=== PATIENT | female | born 1930 | race Caucasian/White ===

== ENCOUNTER → 2016-10-31 | Outpatient (CLI) | payer MEDICARE ==
--- NOTE | 2016-10-31 15:42 | BD ---
EXAMINATION TYPE: MG DEXA axial skeleton. DATE OF EXAM: 10/31/2016 Height: 62.25 Weight: 155 FRAX RISK QUESTIONS: Alcohol (3 or more units per day): No Family History (Parent hip fracture): unsure Glucocorticoids (More than 3mos): no (Ex: prednisone, prednisolone, methylprednisolone, dexamethasone, and hydrocortisone). History of Fracture in Adulthood: yes, humerus...lower leg... after age 49 Secondary Osteoporosis: 1. Type 1 Diabetes: no 2. Hyperthyroidism: no 3. Menopause before 45: no 4. Malnutrition: no 5. Chronic liver disease: no Rheumatoid Arthritis: no Current Tobacco Use: no RISK FACTORS HISTORY OF: Family History of Osteoporosis: patient believes daughter may have osteoporosis Active: yes Diet low in dairy products/other sources of calcium: somewhat Postmenopausal woman: yes Take estrogen and/or progesterone medications: no Lost more than 2 inches in height since high school: perhaps, states may have been about 65 inches at one time Frequent falls: no Poor Health: no Hyperparathyroidism: no Adrenal Insufficiency: no MEDICATIONS: Prednisone or other steroids: no Thyroid Medications: no Osteoporosis Medications: not now Which medication: Fosamax, then Actonel How Long: very briefly Additional Medications: blood pressure meds & a med for gout EXAM MEASUREMENTS: Bone mineral densitometry was performed using the Unight System. Bone mineral density as measured about the Lumbar spine is: ----- L1-L4(G/cm2): 0.925 T Score Values are as follows: ----- L2: -2.7 ----- L3: -1.9 ----- L4: -1.3 ----- L1-L4: -2.1 Bone mineral density has: Increased 1.6% since study of: 05/02/2011 Bone mineral density about the R hip (g/cm2): 0.844 Bone mineral density about the L hip (g/cm2): 0.845 T Score values are as follows: -----R Neck: -1.4 -----L Neck: -1.4 -----R Total: -0.4 -----L Total: -0.8 Bone mineral density has: Increased 0.2% since study of: 05/02/2011 IMPRESSION: Findings compatible with osteopenia about the lumbar spine and as such there is increased fracture ri sk. NOTE: T-SCORE=SD OF THE YOUNG ADULT MEAN.
--- NOTE | 2016-11-07 11:48 | MM ---
Reason for exam: screening (asymptomatic). Last mammogram was performed 5 years and 6 months ago. History: Patient is postmenopausal. Family history of breast cancer in mother and breast cancer in daughter at age 50. Physical Findings: A clinical breast exam by your physician is recommended on an annual basis and results should be correlated with mammographic findings. MG 3D Screening Mammo W/Cad Bilateral CC and MLO view(s) were taken. Prior study comparison: April 01, 2013, mammogram, performed at [facility]. May 04, 2011, [facility] DIGITAL BILATERAL MAMMOGRAM w/CAD. May 02, 2011, bilateral digital screening mammo w/CAD. The breast tissue is heterogeneously dense. This may lower the sensitivity of mammography. There is chronic nodularity in the left breast. No significant changes when compared with prior studies. ASSESSMENT: Benign, BI-RAD 2 RECOMMENDATION: Routine screening mammogram of both breasts in 1 year.
== END | disposition home or self-care (01) ==
LOC: RADMAMWWP 11:53
PROVIDERS: ATTEND Internal Medicine Geriatric Medicine
DX: Z12.31 Encounter for screening mammogram for malignant neoplasm of breast (principal); M81.0 Age-related osteoporosis without current pathological fracture
CPT/HCPCS: 77080; 77063; G0202

== ENCOUNTER 2017-08-05 11:06 | Emergency (ER) | payer MEDICARE ==
[2017-08-05 11:33] VITALS: RESP 18
--- NOTE | 2017-08-05 12:49 | ED ---
Extremity Problem HPI - General Chief complaint: Extremity Problem,Nontraumatic Stated complaint: Swollen Right Leg Time Seen by Provider: 08/05/17 11:43 Source: patient, RN notes reviewed, old records reviewed Mode of arrival: wheelchair Limitations: no limitations - History of Present Illness Initial comments: A 86-year-old female presents emergency Department chief complaint of right lower extremity swelling. Patient states that she's had these symptoms for the past week. She ports pain when she is ambulating. Patient states that she has had no trauma to the leg. Denies any itching. No fevers or chills. She does have a history of gout. - Related Data Home Medications Medication Instructions Recorded Confirmed Allopurinol [Zyloprim] 300 mg PO DAILY 09/03/13 09/04/13 Dicyclomine [Bentyl] 20 mg PO TID 09/03/13 09/04/13 Hydrochlorothiazide [Hydrodiuril] 25 mg PO DAILY 09/03/13 09/04/13 Losartan Potassium [Cozaar] 50 mg PO DAILY 09/03/13 09/04/13 Simvastatin [Zocor] 40 mg PO HS 09/03/13 09/04/13 Previous Rx's Medication Instructions Recorded Acetaminophen-Codeine 300-30mg 1 tab PO Q4H PRN 3 Days #12 tablet 08/05/17 [Tylenol w/codeine #3] Allergies Allergy/AdvReac Type Severity Reaction Status Date / Time morphine AdvReac Nausea & Verified 08/05/17 11:33 Vomiting Penicillins AdvReac PAIN AT Verified 08/05/17 11:33 INJECTIONS SITE Review of Systems ROS Statement: Those systems with pertinent positive or pertinent negative responses have been documented in the HPI. ROS Other: All systems not noted in ROS Statement are negative. Past Medical History Past Medical History: Hyperlipidemia, Hypertension Additional Past Medical History / Comment(s): gout History of Any Multi-Drug Resistant Organisms: None Reported Past Surgical History: Cholecystectomy, Hernia Repair, Hysterectomy Past Psychological History: No Psychological Hx Reported Smoking Status: Never smoker Past Alcohol Use History: None Reported Past Drug Use History: None Reported General Exam - General Exam Comments Initial Comments: Pleasant 86-year-old female. Alert and oriented. No acute distress. Limitations: no limitations General appearance: alert, in no apparent distress Head exam: Present: atraumatic, normocephalic, normal inspection Eye exam: Present: normal appearance, PERRL, EOMI. Absent: scleral icterus, conjunctival injection, periorbital swelling ENT exam: Present: normal exam, mucous membranes moist Neck exam: Present: normal inspection. Absent: tenderness, meningismus, lymphadenopathy Respiratory exam: Present: normal lung sounds bilaterally. Absent: respiratory distress, wheezes, rales, rhonchi, stridor Cardiovascular Exam: Present: regular rate, normal rhythm, normal heart sounds. Absent: systolic murmur, diastolic murmur, rubs, gallop, clicks GI/Abdominal exam: Present: soft, normal bowel sounds. Absent: distended, tenderness, guarding, rebound, rigid Extremities exam: Present: normal inspection, full ROM, normal capillary refill. Absent: tenderness, pedal edema, joint swelling, calf tenderness Right Upper Leg exam: Present: normal inspection, full ROM Knee exam: Present: normal inspection, full ROM Lower Leg exam: Present: normal inspection, swelling. Absent: full ROM Ankle exam: Present: full ROM, swelling. Absent: normal inspection Foot/Toe exam: Present: normal inspection, full ROM Gait: observed and normal Back exam: Present: normal inspection Neurological exam: Present: alert, oriented X3, CN II-XII intact Psychiatric exam: Present: normal affect, normal mood Skin exam: Present: warm, dry, intact, normal color. Absent: rash Course Vital Signs 08/05/17 08/05/17 08/05/17 11:30 14:36 16:12 Temperature 98.4 F 98.5 F Pulse Rate 70 75 73 Respiratory 18 18 18 Rate Blood Pressure 141/65 161/70 164/86 O2 Sat by Pulse 96 94 L 95 Oximetry Medical Decision Making - Lab Data Result diagrams: 08/05/17 14:24 08/05/17 14:24 Lab Results 08/05/17 08/05/17 08/05/17 Range/Units 14:24 14:24 14:24 WBC 7.2 (3.8-10.6) k/uL RBC 4.43 (3.80-5.40) m/uL Hgb 13.3 (11.4-16.0) gm/dL Hct 39.6 (34.0-46.0) % MCV 89.5 (80.0-100.0) fL MCH 30.1 (25.0-35.0) pg MCHC 33.6 (31.0-37.0) g/dL RDW 14.2 (11.5-15.5) % Plt Count 315 (150-450) k/uL Neutrophils % 64 % Lymphocytes % 24 % Monocytes % 5 % Eosinophils % 5 % Basophils % 1 % Neutrophils # 4.6 (1.3-7.7) k/uL Lymphocytes # 1.7 (1.0-4.8) k/uL Monocytes # 0.3 (0-1.0) k/uL Eosinophils # 0.3 (0-0.7) k/uL Basophils # 0.1 (0-0.2) k/uL Sodium 143 (137-145) mmol/L Potassium 3.6 (3.5-5.1) mmol/L Chloride 104 (98-107) mmol/L Carbon Dioxide 27 (22-30) mmol/L Anion Gap 12 mmol/L BUN 19 H (7-17) mg/dL Creatinine 0.89 (0.52-1.04) mg/dL Est GFR (CKD-EPI)AfAm 67 (>60 ml/min/1.73 sqM) Est GFR (CKD-EPI)NonAf 59 (>60 ml/min/1.73 sqM) Glucose 101 H (74-99) mg/dL Uric Acid 3.9 (3.7-7.4) mg/dL Calcium 9.6 (8.4-10.2) mg/dL Total Bilirubin 0.6 (0.2-1.3) mg/dL AST 33 (14-36) U/L ALT 28 (9-52) U/L Alkaline Phosphatase 97 (38-126) U/L NT-Pro-B Natriuret Pep 123 pg/mL Total Protein 6.7 (6.3-8.2) g/dL Albumin 4.0 (3.5-5.0) g/dL - Radiology Data Radiology results: report reviewed Disposition Clinical Impression: Leg edema Disposition: HOME SELF-CARE Condition: Good Instructions: Leg Edema (ED) Additional Instructions: Patient advised to rest, keep legs elevated and ice them. Patient is a pain medicine as needed for severe pain. Patient can follow up with primary care provider he may need to be on Lasix. Return to the emergency department if any alarming signs or symptoms occur. Prescriptions: Acetaminophen-Codeine 300-30mg [Tylenol w/codeine #3] 1 tab PO Q4H PRN 3 Days # 12 tablet PRN Reason: Pain Is patient prescribed a controlled substance at d/c from ED?: No If prescribed controlled substance>3 days was MAPS reviewed?: No When asked, does pt state using other controlled substances?: No Referrals: Petr Sherman MD [Primary Care Provider] - 1-2 days Time of Disposition: 15:47
--- NOTE | 2017-08-05 13:17 | US ---
EXAMINATION TYPE: US venous doppler duplex LE DATE OF EXAM: 08/05/2017 1:09 PM COMPARISON: NONE CLINICAL HISTORY: 86-year-old female with bilateral lower leg swelling right > left ankle and intermi ttently occurring x 6 months, LE skin redness SIDE PERFORMED: Bilateral TECHNIQUE: The lower extremity deep venous system is examined utilizing real time linear array sonog keron with graded compression, doppler sonography and color-flow sonography. FINDINGS: VESSELS IMAGED: Common Femoral Vein Deep Femoral Vein Greater Saphenous Vein * Femoral Vein Popliteal Vein Small Saphenous Vein * Proximal Calf Veins Posterior tibial veins (* superficial vessels) Right Leg: Negative for DVT Left Leg: Negative for DVT Subcutaneous edema at the bilateral ankles. IMPRESSION: 1. No evidence for DVT within the bilateral lower extremities. 2. Subcutaneous edema at both ankles.
--- NOTE | 2017-08-05 14:28 | XR ---
EXAMINATION TYPE: XR chest 1V portable, XR tibia fibula 2 views RT DATE OF EXAM: 08/05/2017 Comparison: None. Clinical History: 86-year-old female with right lower leg pain and swelling.Pain Findings: Chest: The heart is mildly enlarged. Aorta within normal limits. Diffuse interstitial prominence of the synchronous motor assembler yee appearance. Hazy lower and peripheral lung densities related to overlying soft tissue. No consoli dation or pleural effusion seen. Right tibia/fibula: Osteopenia. Some soft tissue swelling noted at the ankle. No acute fracture seen. Limited positioning on the lateral view for assessment of joint effusion at the knee. Impression: 1. Chest: Mild cardiomegaly and chronic appearing changes, possible bronchitis or chronic asthma. No infiltrate. 2. Right tibia/fibula: No acute osseous abnormality seen. Unable to assess for knee joint effusion du e to positioning on the lateral view. There is soft tissue swelling at the ankle.
[2017-08-05 14:37] LABS: Basophils # (A) 0.1 k/uL (0-0.2); Basophils % (A) 1 %; Eosinophils # (A) 0.3 k/uL (0-0.7); Eosinophils % (A) 5 %; HCT 39.6 % (34.0-46.0); HGB 13.3 gm/dL (11.4-16.0); Lymphocytes # (A) 1.7 k/uL (1.0-4.8); Lymphocytes % (A) 24 %; MCH 30.1 pg (25.0-35.0); MCHC 33.6 g/dL (31.0-37.0); MCV 89.5 fL (80.0-100.0); Mean Platelet Volume 6.4; Monocytes # (A) 0.3 k/uL (0-1.0); Monocytes % (A) 5 %; Neutrophils # (A) 4.6 k/uL (1.3-7.7); Neutrophils % (A) 64 %; Platelet Count 315 k/uL (150-450); RBC 4.43 m/uL (3.80-5.40); RDW 14.2 % (11.5-15.5); WBC 7.2 k/uL (3.8-10.6)
[2017-08-05 14:49] LABS: Calcium 9.6 mg/dL (8.4-10.2); Potassium 3.6 mmol/L (3.5-5.1); Total Bilirubin 0.6 mg/dL (0.2-1.3); Total Protein 6.7 g/dL (6.3-8.2); Uric Acid 3.9 mg/dL (3.7-7.4)
[2017-08-05 16:14] VITALS: BP 164/86; PULSE 73; TEMP 98.5
== END 2017-08-05 16:13 | disposition home or self-care (01) ==
LOC: EC 11:06
DX: R60.0 Localized edema (principal); M79.604 Pain in right leg; E78.5 Hyperlipidemia, unspecified; I10 Essential (primary) hypertension; M10.9 Gout, unspecified; Z79.899 Other long term (current) drug therapy; Z88.0 Allergy status to penicillin; Z88.5 Allergy status to narcotic agent
CPT/HCPCS: 36415; 71045; 80053; 83880; 84550; 85025; 93970; 99284

== ENCOUNTER → 2018-02-19 | Outpatient (CLI) | payer MEDICARE ==
--- NOTE | 2018-02-19 15:50 | XR ---
EXAM TYPE: LUMBAR SPINE X RAY SERIES COMPARISON: NONE HISTORY: Back pain TECHNIQUE: 3 views are submitted. FINDINGS: Alignment is anatomic. The pedicles are intact. The transverse processes are intact. There is no s pondylolysis or spondylolisthesis. Surgical clips in the right upper quadrant. There is diffuse oste openia. Calcification inferior to the SI joint is chronic and nonspecific. There is severe facet arth ropathy involving the mid and lower lumbar spine and there is multilevel mild degenerative disc disea se. IMPRESSION: 1. Diffuse osteopenia with multilevel mild degenerative disc disease. However, there is severe facet arthropathy particularly at L4-5 and L5-S1..
== END | disposition home or self-care (01) ==
LOC: RADXRMAIN 15:07
PROVIDERS: ATTEND Internal Medicine Geriatric Medicine
DX: M51.36 Other intervertebral disc degeneration, lumbar region (principal); M46.97 Unspecified inflammatory spondylopathy, lumbosacral region; M85.88 Other specified disorders of bone density and structure, other site
CPT/HCPCS: 72100

== ENCOUNTER → 2018-08-20 | Outpatient (CLI) | payer MEDICARE ==
--- NOTE | 2018-08-20 14:10 | P.PAINCN ---
History of Present Illness - Reason for Consult Consult date: 08/20/18 - History of Present Illness Amanda is an 88-year-old female presenting today as a new patient consult. She presents today with a chief complaint of right-sided low back pain. She has had this low back pain for a little over a year. She reports that the pain came on after tearing of meniscus and a right knee. She's not had any surgical intervention for the right knee. She reports of the right side of the low back is tender right over the back of the hip and lower back. She has point tenderness which lends up with the sacroiliac joint. She reports that her pain is not bad when sitting but is worse with standing from a seated position. She has pain with going up stairs. She has trouble crossing her right leg over her left leg. She denies any bowel or bladder incontinence. She denies any lower extremity weakness. She does have some numbness associated with the leg pain at times. She also reports a pain across the thoracic spine and right below her shoulder blades at times. She reports is a transient pain comes and goes, she thinks is associated with stress as a pain gets worse when she is stressed out. She recently lost her daughter and will be very over the next few days. Review of Systems 12 point review of systems is negative except as noted in the HPI Past Medical History Past Medical History: Hyperlipidemia, Hypertension Additional Past Medical History / Comment(s): gout History of Any Multi-Drug Resistant Organisms: None Reported Past Surgical History: Cholecystectomy, Hernia Repair, Hysterectomy Past Psychological History: No Psychological Hx Reported Smoking Status: Never smoker Past Alcohol Use History: None Reported Past Drug Use History: None Reported Medications and Allergies Home Medications Medication Instructions Recorded Confirmed Type Allopurinol [Zyloprim] 300 mg PO DAILY 09/03/13 08/20/18 History Losartan Potassium [Cozaar] 50 mg PO DAILY 09/03/13 08/20/18 History Simvastatin [Zocor] 40 mg PO HS 09/03/13 08/20/18 History Acetaminophen Tab [Tylenol] 1 tab PO DIRECTED PRN 08/20/18 08/20/18 History Acetaminophen-Codeine 300-30mg 1 tab PO Q6HR PRN 08/20/18 08/20/18 History [Tylenol w/codeine #3] Aspirin [Adult Low Dose Aspirin EC] 1 tab PO DAILY 08/20/18 08/20/18 History Baclofen 1 tab PO BID 08/20/18 08/20/18 History Benzonatate [Tessalon Perles] 1 tab PO TID 08/20/18 08/20/18 History Blue Emu 1 applicate TOPICAL DIRECTED 08/20/18 History Furosemide [Lasix] 1 tab PO DAILY 08/20/18 08/20/18 History Melronedazale 0.75 applicate TOPICAL DIRECTED 08/20/18 History Naproxen Sodium [Aleve] 1 tab PO TID PRN 08/20/18 08/20/18 History Potassium Chloride [Klor-Con 10] 1 day PO DAILY 08/20/18 08/20/18 History Triamcinolone 0.1% Cream [Kenalog 1 TOPICAL DIRECTED 08/20/18 History 0.1% Cream] Allergies Allergy/AdvReac Type Severity Reaction Status Date / Time morphine AdvReac Nausea & Verified 08/20/18 12:28 Vomiting Penicillins AdvReac PAIN AT Verified 08/20/18 12:28 INJECTIONS SITE Physical Exam Vitals: Intake and Output 08/19/18 08/20/18 08/20/18 22:59 06:59 14:59 Other: Weight 72.575 kg General: Awake and alert oriented 3 no distress Respiratory exam: No audible wheezing no accessory muscle usage Cardiovascular exam: regular rate, palpable bilateral pulses, positive lower extremity edema which is pitting up to the knee bilateral Abdominal exam: No distention nontender to palpation Cervical spine: Normal alignment, Spurling's negative, facet loading negative, Baking Assistant strength is 5/5, valero negative Lumbar spine: Loss of lumbar lordosis, normal alignment, tender to palpation over bilateral paraspinal muscles, facet loading is negative bilaterally. Straight leg raise is negative. Slightly limited range of motion in the lumbar spine mostly with extension of the lumbar spine. Flexion and lateral sidebending are preserved. Sacroiliac joints: She is tender to palpation over the right SI joint. Delores's test is positive on the right as well as Gaenslen test positive on the right. Knee: Left knee is normal right knee is in a brace. Grind test positive on the right. Drawer test is negative Neuro exam: Normal sensation in bilateral upper extremities, deep tendon reflexes are 2+ bilateral upper extremities. Normal sensation in bilateral lower extremities. Deep tendon reflexes are 2+ in lower extremities Psych exam: Cooperative, appropriate mood Assessment and Plan Assessment: #1 sacroiliitis #2 right meniscal tear Plan: Patient's had intervention including cortisone injections to the right knee with some improvement. She has nonoperative therapy for the right knee. I discussed with her that I believe her back pain is likely coming from the sacroiliac joint on the right side. She like to move forward with a sacroiliac joint injection under fluoroscopy without any sedation. I discussed with her that the injection may offer some benefit but there is a chance that she has incomplete resolution of her pain. She also has significant facet arthropathy which is noted on the x-rays of the lumbar spine. The MRI was reviewed and shows some degeneration of the disc space. If this does not improve her pain she may benefit from a L4 5 L5-S1 medial branch block on the right side PQRS Measure Charge Sheet PQRS Narrative: Smoking Status Never smoker Home Medications: Ambulatory Orders Allopurinol [Zyloprim] 300 mg PO DAILY 09/03/13 Losartan Potassium [Cozaar] 50 mg PO DAILY 09/03/13 Simvastatin [Zocor] 40 mg PO HS 09/03/13 Acetaminophen Tab [Tylenol] 1 tab PO DIRECTED PRN 08/20/18 Acetaminophen-Codeine 300-30mg [Tylenol w/codeine #3] 1 tab PO Q6HR PRN 08/20/18 Aspirin [Adult Low Dose Aspirin EC] 1 tab PO DAILY 08/20/18 Baclofen 1 tab PO BID 08/20/18 Benzonatate [Tessalon Perles] 1 tab PO TID 08/20/18 Blue Emu 1 applicate TOPICAL DIRECTED 08/20/18 Furosemide [Lasix] 1 tab PO DAILY 08/20/18 Melronedazale 0.75 applicate TOPICAL DIRECTED 08/20/18 Naproxen Sodium [Aleve] 1 tab PO TID PRN 08/20/18 Potassium Chloride [Klor-Con 10] 1 day PO DAILY 08/20/18 Triamcinolone 0.1% Cream [Kenalog 0.1% Cream] 1 TOPICAL DIRECTED 08/20/18
== END | disposition home or self-care (01) ==
LOC: PNWHC3 11:39
PROVIDERS: ATTEND Hospitalist
DX: M46.1 Sacroiliitis, not elsewhere classified (principal); S83.206A Unspecified tear of unspecified meniscus, current injury, right knee, initial encounter; E78.5 Hyperlipidemia, unspecified; I10 Essential (primary) hypertension; Z79.82 Long term (current) use of aspirin; Z79.899 Other long term (current) drug therapy; Z88.0 Allergy status to penicillin; Z88.5 Allergy status to narcotic agent
CPT/HCPCS: 99211